=== PATIENT | male | born 1960 | race Two or more races ===

== ENCOUNTER 2016-10-08 15:18 | Emergency (ER) | payer SELFPAY ==
[~2016-10-08] VITALS: Ht 170.2 cm; Wt 74.8 kg
[2016-10-08 16:05] VITALS: BP 138/81
[2016-10-08] MEDS ORDERED: ONDANSETRON HCL 4 MG/2 ML VIAL IM ONE (16:45)
[2016-10-08] MEDS ORDERED: cefTRIAXone SOD 1,000 MG VL IM ONE (16:45)
[2016-10-08] MEDS ORDERED: TETANUS-DIPTH-ACEL PERTUSSIS 0.5ML SYRG IM ONE (16:45)
[2016-10-08] MEDS ORDERED: HYDROmorphone HCL 2 MG/ML VL IM ONE (16:45)
[2016-10-08] MEDS ORDERED: PROMETHAZINE HCL 25 MG/ML 1ML IM ONE (17:30)
== END 2016-10-08 17:56 | disposition home or self-care (01) ==
LOC: ER 15:27
DX: S61.213A Laceration without foreign body of left middle finger without damage to nail, initial encounter (principal); S61.215A Laceration without foreign body of left ring finger without damage to nail, initial encounter; S62.661B Nondisplaced fracture of distal phalanx of left index finger, initial encounter for open fracture; Z23 Encounter for immunization; W29.8XXA Contact with other powered hand tools and household machinery, initial encounter; Y93.89 Activity, other specified; Y99.8 Other external cause status; Y92.89 Other specified places as the place of occurrence of the external cause
CPT/HCPCS: 12004; 73130; 90471; 90715; 93005; 96372; 99284; J0696; J1170; J2405; J2550

== ENCOUNTER 2016-10-10 06:54 | Emergency (ER) | payer SELFPAY ==
[~2016-10-10] VITALS: Ht 170.2 cm; Wt 74.8 kg
[2016-10-10 07:24] VITALS: BP 116/67
[2016-10-10] MEDS ORDERED: ACETAMINOPHEN/CODEINE#3 (300/30mg) TAB PO ONE (10:30)
== END 2016-10-10 11:19 | disposition home or self-care (01) ==
LOC: ER 07:02
DX: S61.213D Laceration without foreign body of left middle finger without damage to nail, subsequent encounter (principal); S61.215D Laceration without foreign body of left ring finger without damage to nail, subsequent encounter; Z48.01 Encounter for change or removal of surgical wound dressing